=== PATIENT | male | born 1945 | race African-American/Black ===

== ENCOUNTER 2018-07-06 12:44 | Emergency (ER) | payer MEDICARE, OTHER ==
[~2018-07-06] VITALS: Ht 175.3 cm; Wt 115.9 kg
[~2018-07-06 12:44] MED LIST: ATEN-188 PO; OMEP20 PO; OXYB5TAB10 PO; POTASSIUM CHLORIDE PO; SIMV-259 PO; SPIR1TAB PO
[2018-07-06 12:46] VITALS: BP 162/96
[2018-07-06] MEDS ORDERED: ASPI81 PO (12:57)
[2018-07-06] MEDS ORDERED: POVIDONE-IODINE 10% 15 ML SOLUTION UD TP ONE (13:45)
[2018-07-06] MEDS ORDERED: KETOROLAC TROMETHAMINE 10 MG TABLET PO ONE (13:45)
[2018-07-06] MEDS ORDERED: LIDOCAINE 1% 10 ML VIAL INJ ONE (13:45)
== END 2018-07-06 14:24 | disposition home or self-care (01) ==
LOC: EMS 12:45
DX: L02.412 Cutaneous abscess of left axilla (principal); E78.00 Pure hypercholesterolemia, unspecified; I10 Essential (primary) hypertension; K21.9 Gastro-esophageal reflux disease without esophagitis; Z91.011 Allergy to milk products
CPT/HCPCS: 10060; 99283; J3490

== ENCOUNTER 2018-07-08 07:42 | Emergency (ER) | payer MEDICARE, OTHER ==
[~2018-07-08] VITALS: Ht 177.8 cm; Wt 113.6 kg
[~2018-07-08 07:42] MED LIST changes: +ASPI81 PO; -ATEN-188 PO; -OMEP20 PO; -OXYB5TAB10 PO; -POTASSIUM CHLORIDE PO; -SIMV-259 PO; -SPIR1TAB PO
[2018-07-08 07:43] VITALS: BP 155/98
== END 2018-07-08 08:25 | disposition home or self-care (01) ==
LOC: EMS 07:43
DX: L02.213 Cutaneous abscess of chest wall (principal); K21.9 Gastro-esophageal reflux disease without esophagitis; E78.00 Pure hypercholesterolemia, unspecified; I10 Essential (primary) hypertension; Z88.8 Allergy status to other drugs, medicaments and biological substances; Z79.82 Long term (current) use of aspirin
CPT/HCPCS: 99282

== ENCOUNTER 2018-07-10 10:17 | Emergency (ER) | payer MEDICARE, OTHER ==
[~2018-07-10] VITALS: Ht 175.3 cm; Wt 113.6 kg
[2018-07-10] MEDS ORDERED: CEPH500 PO (10:25)
[2018-07-10 11:26] VITALS: BP 149/98
== END 2018-07-10 11:49 | disposition home or self-care (01) ==
LOC: EMS 10:19
DX: L08.89 Other specified local infections of the skin and subcutaneous tissue (principal); I10 Essential (primary) hypertension; E78.00 Pure hypercholesterolemia, unspecified; K21.9 Gastro-esophageal reflux disease without esophagitis; Z79.82 Long term (current) use of aspirin
CPT/HCPCS: 99283

== ENCOUNTER 2018-07-13 12:06 | Emergency (ER) | payer MEDICARE, OTHER ==
[~2018-07-13] VITALS: Ht 177.8 cm; Wt 113.6 kg
[~2018-07-13 12:06] MED LIST changes: +CEPH500 PO
[2018-07-13 14:34] VITALS: BP 151/83
== END 2018-07-13 15:17 | disposition home or self-care (01) ==
LOC: EMS 12:07
DX: Z48.01 Encounter for change or removal of surgical wound dressing (principal); I10 Essential (primary) hypertension; K21.9 Gastro-esophageal reflux disease without esophagitis; E78.00 Pure hypercholesterolemia, unspecified; Z98.890 Other specified postprocedural states; Z88.8 Allergy status to other drugs, medicaments and biological substances; Z79.82 Long term (current) use of aspirin
CPT/HCPCS: 99283

== ENCOUNTER 2018-07-22 09:51 | Emergency (ER) | payer MEDICARE, OTHER ==
[~2018-07-22] VITALS: Ht 175.3 cm; Wt 113.6 kg
[~2018-07-22 09:51] MED LIST changes: -CEPH500 PO
[2018-07-22 10:35] VITALS: BP 158/91
== END 2018-07-22 11:53 | disposition home or self-care (01) ==
LOC: EMS 09:52
DX: L02.412 Cutaneous abscess of left axilla (principal); K21.9 Gastro-esophageal reflux disease without esophagitis; E78.00 Pure hypercholesterolemia, unspecified; I10 Essential (primary) hypertension; Z79.82 Long term (current) use of aspirin; Z88.8 Allergy status to other drugs, medicaments and biological substances
CPT/HCPCS: 99283

== ENCOUNTER 2018-07-29 17:34 | Emergency (ER) | payer MEDICARE, OTHER ==
[~2018-07-29] VITALS: Ht 172.7 cm; Wt 109.1 kg
[2018-07-29 19:43] VITALS: BP 127/76
== END 2018-07-29 19:49 | disposition home or self-care (01) ==
LOC: EMS 17:35
DX: T78.1XXA Other adverse food reactions, not elsewhere classified, initial encounter (principal); I10 Essential (primary) hypertension; K21.9 Gastro-esophageal reflux disease without esophagitis; E78.00 Pure hypercholesterolemia, unspecified; Z91.011 Allergy to milk products; Z79.82 Long term (current) use of aspirin
CPT/HCPCS: 99283

== ENCOUNTER 2018-11-15 11:33 | Emergency (ER) | payer MEDICARE, OTHER ==
[~2018-11-15] VITALS: Ht 175.3 cm; Wt 120.0 kg
[2018-11-15] MEDS ORDERED: METO25XL PO (11:53)
[2018-11-15] MEDS ORDERED: ALBU8HFA IH (11:53)
[2018-11-15] MEDS ORDERED: ATOR20TA86 PO (11:53)
[2018-11-15] MEDS ORDERED: FURO20 PO (11:53)
[2018-11-15 12:57] LABS: APPEARANCE,URINE CLEAR (CLEAR); BILIRUBIN,URINE NEGATIVE (NEGATIVE); GLUCOSE, URINE (UA) NEGATIVE (NEGATIVE); KETONES,URINE NEGATIVE (NEGATIVE); LEUKOCYTE ESTERASE ,URINE NEGATIVE (NEGATIVE); NITRATE,URINE NEGATIVE (NEGATIVE); OCCULT BLOOD,URINE NEGATIVE (NEGATIVE); PROTEIN,URINE NEGATIVE (NEGATIVE); UROBILINOGEN,URINE 0.2 mg/dL (<=1.0)
[2018-11-15 13:02] LABS: BASOPHILS % (AUTO) 0.7 % (0.0-2.0); EOSINOPHILS % (AUTO) 1.6 % (1.0-6.0); HEMOGLOBIN 14.6 g/dL (13.5-17.5); LYMPHOCYTES # (AUTO) 1.9 K/uL (1.0-4.8); LYMPHOCYTES % (AUTO) 40.9 % (22.0-44.0); MEAN CORPUSCULAR HEMOGLOBIN 30.4 pg (26.0-34.0); MEAN CORPUSCULAR HGB CONC 33.2 G/dL (31.0-37.0); MEAN CORPUSCULAR VOLUME 91 fL (80-100); MONOCYTES # (AUTO) 0.6 K/uL (0.1-1.0); MONOCYTES % (AUTO) 12.7 % (2.0-9.0); NEUTROPHILS # (AUTO) 2.1 K/uL (1.8-7.7); NEUTROPHILS % (AUTO) 44.1 % (40.0-70.0); PLATELET COUNT (AUTO) 219 K/uL (150-450); RED BLOOD CELL COUNT(AUTO) 4.81 MIL/uL (4.50-5.90); RED CELL DISTRIBUTION WIDTH 14.4 % (11.5-14.5)
[2018-11-15 13:10] LABS: ANION GAP 9 mmol/L (8-16); CALCIUM, TOTAL 9.2 mg/dL (8.8-10.5); CARBON DIOXIDE 30 mmol/L (22-29); CHLORIDE 101 mmol/L (98-107); CREATININE 1.11 mg/dL (0.60-1.30); GLOMERULAR FILTR. RATE CALC > 60 mL/min (>60); GLUCOSE,RANDOM 99 mg/dL (70-110); SODIUM SERUM 140 mmol/L (136-145); UREA NITROGEN, BLOOD 7 mg/dL (7-18)
[2018-11-15 13:13] LABS: RBC,URINE 0-2 /HPF (0-2); WBC,URINE None Seen /HPF (0-5)
[2018-11-15 13:14] LABS: BACTERIA,URINE None Seen /HPF (None Seen); SQUAMOUS EPITHELIAL CELL,UR Rare /LPF (None Seen)
[2018-11-15 13:16] LABS: ALANINE AMINOTRANSFERASE 40 U/L (12-78); ALBUMIN 4.1 g/dL (3.4-5.0); ALKALINE PHOSPHATASE 92 U/L (46-116); ASPARTATE AMINOTRANSFERASE 26 U/L (15-37); BILIRUBIN,TOTAL 0.5 mg/dL (0.1-1.0)
[2018-11-15 18:00] VITALS: BP 152/90
== END 2018-11-15 18:36 | disposition home or self-care (01) ==
LOC: EMS 11:34
DX: R10.32 Left lower quadrant pain (principal); K21.9 Gastro-esophageal reflux disease without esophagitis; E78.00 Pure hypercholesterolemia, unspecified; I10 Essential (primary) hypertension; Z91.011 Allergy to milk products; Z79.899 Other long term (current) drug therapy; Z79.82 Long term (current) use of aspirin
CPT/HCPCS: 74176